=== PATIENT | male | born 1980 | race African-American/Black ===

== ENCOUNTER → 2016-09-21 | Outpatient (CLI) | payer OTHER ==
[~2016-09-21] MED LIST: CONRAY-43 43% 50ML VIAL (Q9960) As Ordered ONE
--- NOTE | 2016-09-21 09:35 | REP ---
MR ARTHROGRAM RIGHT SHOULDER: TECHNIQUE: Axial T2 fat sat, coronal oblique T1, T2 fat sat, post arthrogram axial T1 fat sat, proton density, coronal oblique T1 fat sat, T2 sat, sagittal oblique T2 fat sat, ABER T1 fat sat. Rotator cuff tendons demonstrate no significant abnormal signal. There is no rotator cuff tendon tear. There are mild to moderate hypertrophic degenerative changes of the acromioclavicular joint with subchondral marrow edema on both sides of the joint. Acromion is somewhat downward sloping. It is not hooked in shape. The biceps tendon is within the bicipital groove with no tenosynovitis. There is no Hill-Sacks deformity. Deltoid muscle demonstrates no abnormal signal. Biceps labral complex is intact. I do not see evidence of a SLAP lesion or labral tear. Bone marrow signal is otherwise homogeneous and unremarkable with no bone bruise or occult fracture. There is a normal amount of joint fluid. There is no paralabral cyst. 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 No rotator cuff tear or labral tear. Signed by Armani Steven MD 09/21/2016 08:06 P
--- NOTE | 2016-09-21 20:23 | REP ---
Procedure: Right shoulder arthrogram The procedure was performed under the direct supervision of Dr. Steven. History: Right shoulder pain The benefits and risks including but not limited to pain, infection, bleeding and anaphylaxis were explained to the patient and informed consent was obtained. Technique: The right glenohumeral joint space was localized using fluoroscopic guidance. The skin was prepped and draped in a sterile fashion. 1% lidocaine was used as a local anesthetic. Using fluoroscopic guidance a 22 gauge spinal needle was inserted and advanced into the joint. 0.5 ml of Conray 43 was injected to verify placement. 11 ml of a solution containing 20 ml of sterile saline and 0.15 ml of ProHance was injected into the joint. The needle was removed and the patient was taken to MRI for postprocedural imaging. The the patient tolerated the procedure well and there were no immediate complications. 1 second of fluoro time was utilized for this procedure. Reviewed by JOVANNY Hagen 09/21/2016 05:04 PSigned by Armani Steven MD 09/21/2016 08:14 P
== END ==
LOC: M RADPRO 06:43
PROVIDERS: ATTEND Physician Assistant Surgical
DX: M19.011 Primary osteoarthritis, right shoulder (principal)
CPT/HCPCS: 23350; 73223; 77002; A9576; Q9960